=== PATIENT | male | born 1990 | race Caucasian/White ===

== ENCOUNTER 2019-12-08 14:07 | Emergency (ER) | payer SELFPAY ==
[2019-12-08 14:09] VITALS: BP 147/96; PULSE 102; RESP 13; TEMP 36.2; O2SAT 93
[2019-12-08 14:11] VITALS: BP 147/96; PULSE 102; PULSE 115; RESP 18; O2SAT 95
[2019-12-08 14:12] VITALS: PULSE 97; RESP 11; O2SAT 92
[2019-12-08 14:15] VITALS: RESP 16
[2019-12-08 14:16] VITALS: BP 138/70; PULSE 103; PULSE 96; RESP 19; O2SAT 94
--- NOTE | 2019-12-08 14:17 | ED.GENADUL_ITS ---
Discharge Plan Disposition Patient Disposition: HOME Condition: Stable Discharge Details Chief Complaint: OD/Poison Clinical Impression: Heroin abuse, Elevated blood pressure reading ED Provider: Ac Alaniz Home Meds and New Rx's Prescriptions: Continued methadone 40 mg Tablet,Soluble 40 mg PO DAILY RF: 0 Discharge Instructions Instructions: Opioid Use Disorder (ED) Additional Instructions: Please contact your primary care physician to arrange follow-up. Be sure to discuss your elevated blood pressure. Return to the ER for any worsening or new concerning symptoms. Referrals: [facility] [Outside] Medical Decision Making 29-year-old male here at the request of law enforcement for medical screening after having snorted heroin. Medical screening exam was performed. No acute medical condition identified. I will refer the patient to follow-up with [facility] -patient is aware of [facility] services and declines consultation at this time. He also plans to follow-up with [facility] as scheduled. Usual customary discharge instructions were reviewed with patient. Medical Records Medical records reviewed: No I reviewed the patient's medical records. HPI General Mode of arrival: ambulatory . Date/Time Provider Initiated Documentation: 12/08/19 14:17 . Limitations to Documentation: no limitations . Information obtained by: patient . HPI Narrative: 29-year-old male with opioid use disorder, here in law enforcement custody after being arrested for possession of heroin. Patient notes that just prior to arrival he was in gas station restroom and snorted heroin. He used less heroin than he typically does. Patient denies any complaints. Patient here at the request of law enforcement for evaluation. No oxygen was not administered. Patient notes he just started methadone program at [facility]. He did not receive methadone today. Related Data Home Medications Medication Instructions Recorded Confirmed methadone 40 mg PO DAILY 12/08/19 12/08/19 Allergies Allergy/AdvReac Type Severity Reaction Status Date / Time amoxicillin [From Augmentin] Allergy Unverified 12/08/19 14:14 clavulanic acid Allergy Unverified 12/08/19 14:14 [From Augmentin] General Stated Complaint: OD/Poison KAMINI: 3 Review of Systems All systems reviewed & are unremarkable except as noted in HPI and below Constitutional Constitutional: Denies fever(s) Cardiovascular Cardiovascular: Denies dyspnea Respiratory Respiratory: Denies cough and Denies dyspnea Exam Const General: cooperative and no acute distress HENMT Head: atraumatic Mouth: moist mucous membranes Eyes Conjunctivae: normal conjunctivae Sclera: normal sclerae Neck Neck: trachea midline and supple Resp Auscultation: clear to auscultation bilaterally, no rales, no rhonchi and no wheezes Cardio Jugular venous pressure: no JVD Rate: tachycardic (100bpm) Rhythm: regular rhythm GI Palpation: soft, not firm, no guarding, no masses, not rigid and nontender Skin General skin exam: no rashes or lesions noted Neuro General: patient alert, patient awake, patient oriented x3 and tone normal Extrem General: no edema Psych Appearance: grossly normal Mental Status: mental status grossly normal Speech and Movement: speech and movement normal Course Vital Signs Vital signs: Vital Signs Temperature 36.2 C L 12/08/19 14:09 Pulse 102 H 12/08/19 14:09 Respiratory Rate 13 12/08/19 14:09 Blood Pressure 147/96 H 12/08/19 14:09 Pulse Oximetry 93 L 12/08/19 14:09 Temperature 36.2 C L 12/08/19 14:09 Temperature Source Skin 12/08/19 14:09 Pulse 102 H 12/08/19 14:09 Respiratory Rate 13 12/08/19 14:09 Respiratory Effort Non-Labored 12/08/19 14:09 Blood Pressure 147/96 H 12/08/19 14:09 Blood Pressure Position Sitting 12/08/19 14:09 Pulse Oximetry 93 L 12/08/19 14:09 Oxygen Delivery Method Room Air 12/08/19 14:09 Oxygen Flow Rate 0 12/08/19 14:09 Pain Level 0 12/08/19 14:09
[2019-12-08 14:37] VITALS: BP 138/70; PULSE 96; RESP 19; TEMP 36.2; O2SAT 94
== END 2019-12-08 14:30 | disposition home or self-care (01) ==
LOC: ER 14:51
PROVIDERS: Emergency Provider Student in an Organized Health Care Education/Training Program
DX: F11.10 Opioid abuse, uncomplicated (principal); R03.0 Elevated blood-pressure reading, without diagnosis of hypertension; Z02.89 Encounter for other administrative examinations
CPT/HCPCS: 99285; 99284

== ENCOUNTER 2020-08-07 09:17 | Outpatient (CLI) | payer MEDICAID, SELFPAY ==
--- NOTE | 2020-08-07 09:15 | RT.EKG_ITS ---
APPROVED REPORT Exam: Resting ECG Patient Location: O HR:87 bpm ECG Measurements Heart Rate 87 AXIS LA 146 P 79 QRSd 88 QRS 87 QT 379 T 56 QTc 456 Conclusion Sinus rhythm...normal P axis, V-rate 60- 99
== END 2020-08-07 09:18 | disposition home or self-care (01) ==
LOC: RT 09:18
PROVIDERS: PCP Family Medicine; Visit Provider Family Medicine
DX: Z79.899 Other long term (current) drug therapy (principal); Z13.6 Encounter for screening for cardiovascular disorders
CPT/HCPCS: 93005; 93010